=== PATIENT | female | born 1990 | race Caucasian/White ===

== ENCOUNTER 2019-03-20 16:26 | Emergency (ER) | payer SELFPAY ==
[~2019-03-20] VITALS: Ht 154.9 cm; Wt 60.8 kg
[2019-03-20 16:40] VITALS: BP 122/71
--- NOTE | 2019-03-20 16:53 | NUR ---
Chris ambulated to bed 1 with family. RN evaluating patient at bedside.
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
--- NOTE | 2019-03-20 17:54 | NUR ---
PATIENT STATES TUBAL LIGATION PROCEDURE. Addendum: 03/20/19 at 1755 by JOSE G HX TUBAL LIGATION
--- NOTE | 2019-03-20 18:12 | NUR ---
Dr. Eagle evaluating patient at bedside.
--- NOTE | 2019-03-20 18:20 | NUR ---
Mariana durant in [facility] - 03/20/19 at [address] ROGERS AT BEDSIDE.
--- NOTE | 2019-03-20 18:38 | NUR ---
HEATING ELEMENT BUILDER HERE TO TAKE PATIENT FOR CT.
--- NOTE | 2019-03-20 19:07 | NUR ---
PATIENT BACK FROM CT.
[2019-03-20] MEDS ORDERED: METOCLOPRAMIDE 10 MG TAB PO ONE (19:45)
[2019-03-20] MEDS ORDERED: ONDANSETRON 4 MG ODT PO ONE (19:45)
[2019-03-20] MEDS ORDERED: ACETAMINOPHEN 325 MG TAB PO ONE (19:50)
[2019-03-20] MEDS ORDERED: traMADol 50 MG TAB PO ONE (20:40)
[2019-03-20 20:46] VITALS: BP 110/76
--- NOTE | 2019-03-20 20:46 | NUR ---
Patient discharged with v/s stable. Written and verbal after care instructions given and explained. Patient verbalized understanding. Ambulatory with steady gait. All questions addressed prior to discharge. Advised to follow up with PMD.
== END 2019-03-20 20:46 | disposition home or self-care (01) ==
LOC: MED 16:26
DX: S09.90XA Unspecified injury of head, initial encounter (principal); M54.2 Cervicalgia; M25.512 Pain in left shoulder; M25.562 Pain in left knee; V89.2XXA Person injured in unspecified motor-vehicle accident, traffic, initial encounter; Y93.89 Activity, other specified; Y92.410 Unspecified street and highway as the place of occurrence of the external cause; Y99.8 Other external cause status
CPT/HCPCS: 70450; 71045; 72125; 73030; 73562; 81025; 99284; J8597